=== PATIENT | female | born 1990 | race Two or more races ===

== ENCOUNTER 2017-11-21 21:22 | Emergency (ER) | payer MEDICARE, OTHER ==
[~2017-11-21] VITALS: Ht 152.4 cm; Wt 46.5 kg
[~2017-11-21 21:22] MED LIST: ALBUAER3 INH; FLUN25I EACH NARE; KETOC2%T TOPICAL; LAMI200T PO; LORA10TA PO; MOTR200T4 PO; OMEP40CA2 PO; QUET50XR PO; ZONI1CAP17 PO; [UNRECOGNIZED DRUG - SUPPLY] TOP; [UNRECOGNIZED DRUG - SUPPLY] TOP
[2017-11-21 21:54] VITALS: BP 96/48; PULSE 63; RESP 16; TEMP 98.7; O2SAT 100
[2017-11-21] MEDS ORDERED: MOME17I EACH NARE (22:54)
[2017-11-21] MEDS ORDERED: LORA-650 PO (22:54)
--- NOTE | 2017-11-21 22:57 | PD ---
HPI Chief Complaint: Cold / Flu Symptoms Time Seen by Provider: 22:37 Travel History International Travel<30 days: No Contact w/Intl Traveler<30days: No Traveled to known affect area: No History of Present Illness HPI 27-year-old female with history of asthma and rhinitis presents for evaluation of sneezing and nasal congestion. Symptoms started yesterday after golf practice. She reports severe sneezing and nasal congestion, moderate, no alleviating factors. The mother believes that maybe something triggered it while golfing. She currently uses Singulair as well as Flonase but she does not currently take any antihistamines. She has an appointment tomorrow with her primary care physician to get referred to a lieutenant colonel. No other complaints at this time. PFSH Past Medical History Asthma: Yes Autoimmune Disease: No Blood Disorders: No Anxiety: No Depression: No Cardiovascular Problems: No Diminished Hearing: No Gastrointestinal Disorders: No Genitourinary: Yes (KIDNEY DISORDER) Headaches: No Musculoskeletal: No Neurologic: Yes (AUTISTIC) Psychiatric: Yes (PTSD, AUSTISTIC, DEVELOPMENTALLY DELAYED, MOTHER STATES MENTALLY 6YO) Reproductive: No Respiratory: Yes (asthma) Immunizations Current: Yes Migraines: No Seizures: Yes ?: Not LMP: 11/21/17 Past Surgical History Abdominal Surgery: No Cardiac Surgery: No Ear Surgery: No Endocrine Surgery: Yes (adenoidectomy) Eye Surgery: No Genitourinary Surgery: Yes (KIDNEY BIOPSY) Gynecologic Surgery: No Neurologic Surgery: Yes (autistic) Oral Surgery: Yes (T&A) Thoracic Surgery: No Tonsillectomy: Yes Other Surgery: Yes (Kidney Bx., Adenoidectomy, Tonsillectomy) Social History Alcohol Use: No Tobacco Use: No Substance Use: No Allergies-Medications (Allergen,Severity, Reaction): Coded Allergies: amoxicillin (Unverified Allergy, Severe, RASH, 01/16/17) cefaclor (Unverified Allergy, Severe, RASH, 01/16/17) codeine (Unverified Allergy, Severe, RASH, 01/16/17) erythromycin base (Unverified Allergy, Severe, RASH, 01/16/17) penicillin G (Unverified Allergy, Severe, RASH, 01/16/17) Reported Meds & Prescriptions Reported Meds & Active Scripts Active Nasonex Nasal [place] (Mometasone Furoate) 50 Mcg/Act Naspr 2 [place] EACH NARE DAILY Allergy Relief (Loratadine) 10 Mg Tab 10 Mg PO DAILY 30 Days Zonegran (Zonisamide) 100 Mg Cap 100 Mg PO HS Flunisolide Nasal [place] (Flunisolide) 0.025 Mg/Act Naspr 2 [place] EACH NARE BID Nizoral Topical Shampoo (Ketoconazole) 2% Sham 1 Applic TOPICAL DAILY Apply to scalp Lamictal (Lamotrigine) 200 Mg Tab 200 Mg PO BID Proair Hfa 8.5 GM Inh (Albuterol Sulfate) 90 Mcg/Act Aer 2 Puff INH Q4-6H PRN 108 mcg/actuation Omeprazole 40 Mg Cap 40 Mg PO DAILY Seroquel XR (Quetiapine Fumarate) 50 Mg Tab 50 Mg PO HS [Unscented Gentle Wps] 1 Box TOP DAILY [Filippo Body W/S] 1 Bottle TOP DAILY Review of Systems General / Constitutional: No: Fever, Chills HENT: Positive: Rhinitis, Congestion, Other (Sneezing) Cardiovascular: No: Chest Pain or Discomfort Respiratory: No: Cough, Shortness of Breath Physical Exam Narrative GENERAL: Well-developed well-nourished female no acute distress SKIN: Warm and dry. HEAD: Atraumatic. Normocephalic. EYES: Pupils equal and round. No scleral icterus. No injection or drainage. ENT: No nasal bleeding or discharge. Mucous membranes pink and moist. NECK: Trachea midline. No JVD. CARDIOVASCULAR: Regular rate and rhythm. No murmur appreciated. RESPIRATORY: No accessory muscle use. Clear to auscultation. Breath sounds equal bilaterally. Data Data Last Documented VS Vital Signs Date Time Temp Pulse Resp B/P (MAP) Pulse Ox O2 Delivery O2 Flow Rate FiO2 11/21/17 21:54 98.7 63 16 96/48 (64) 100 Orders Orders Diphenhydramine Inj (Benadryl Inj) (11/21/17 23:00) Oxymetazoline 0.05% Henri [place] (Afrin 0.0 (11/21/17 23:00) Ed Discharge Order (11/21/17 22:47) MDM Medical Decision Making Medical Screen Exam Complete: Yes Emergency Medical Condition: Yes Medical Record Reviewed: Yes Differential Diagnosis Allergic rhinitis, sinusitis, nasal foreign body Narrative Course Her history is consistent with allergic rhinitis. The plan would be to start the patient on an antihistamine and change her Flonase to Nasonex. She will be given Benadryl and a dose of Afrin here. She is encouraged to keep the appointment tomorrow with her primary care physician to get referred to an lieutenant colonel. She is stable for discharge. Diagnosis Primary Impression: Allergic rhinitis Additional Instructions: Use these medications as prescribed. Continue Singulair. Quit taking fluticasone. Follow-up tomorrow with primary care physician to get referred to an lieutenant colonel. Return for any emergent medical conditions. Med/Other Pt SpecificInfo: Prescription(s) given Scripts Mometasone Nasal [place] (Nasonex Nasal [place]) 50 Mcg/Act Naspr 2 SPRAY EACH NARE DAILY for Allergy Management, #1 BOTTLE 0 Refills Prov: Lydia Jolly DO 11/21/17 Loratadine (Allergy Relief) 10 Mg Tab 10 MG PO DAILY for 30 Days, #30 TAB Prov: Lydia Jolly DO 11/21/17 Disposition: 01 DISCHARGE HOME Condition: Stable Andrei Gifford Nov 21, 2017 22:57
[2017-11-21] MEDS ORDERED: diphenhydrAMINE HCL 50 MG/ML VIAL IM ONE (23:00)
[2017-11-21] MEDS ORDERED: OXYMETAZOLINE HCL 0.05% 15 ML NASAL SPRAY NASAL ONE (23:00)
== END 2017-11-21 23:30 | disposition home or self-care (01) ==
LOC: NEPD 21:22
DX: J45.909 Unspecified asthma, uncomplicated (principal); F84.0 Autistic disorder; F43.10 Post-traumatic stress disorder, unspecified
CPT/HCPCS: 96372; 99283; J1200